=== PATIENT | female | born 1985 | race Caucasian/White ===

== ENCOUNTER 2022-10-17 09:15 | Outpatient (CLI) | payer OTHER ==
[~2022-10-17 09:15] MED LIST: IBUPROFEN800 MG PO; ORPH100T PO
== END 2022-10-17 09:33 | disposition home or self-care (01) ==
LOC: SONOGRAMA 09:15
PROVIDERS: ATTEND Obstetrics & Gynecology
DX: N84.0 Polyp of corpus uteri (principal)

== ENCOUNTER 2023-03-11 09:00 | Outpatient (CLI) | payer OTHER | END 2023-03-11 09:11 | disposition home or self-care (01) | LOC: RX STUDY 09:00 | PROVIDERS: ATTEND Specialist | DX: O00.109 Unspecified tubal pregnancy without intrauterine pregnancy (principal) ==

== ENCOUNTER 2025-01-02 08:03 | Outpatient (CLI) | payer OTHER | END 2025-01-02 08:06 | disposition home or self-care (01) | LOC: SONOGRAMA 08:03 | PROVIDERS: ATTEND Obstetrics & Gynecology Reproductive Endocrinology | DX: N84.0 Polyp of corpus uteri (principal) ==